=== PATIENT | female | born 1930 | race Caucasian/White ===

== ENCOUNTER → 2016-07-23 | Outpatient (CLI) | payer OTHER ==
[~2016-07-23] MED LIST: ASPEC325 PO; ATEN-175 PO; AZIT250T PO; CALC200S; CFT250 PO; CLTP PO; DIOVAN HCT PO; EZET10TA41 PO; FSM70 PO; GLC500 PO; LEVO100T84 PO; METAMUCIL TABS PO; NIFE60TA57 PO; NTRC PO; PRLSR20 PO; SERT50TA PO
[2016-07-23 17:38] LABS: BASO % 0.4 %; BASO ABS # 0.04 K/uL (0-0.2); COMPLETE YES; EOS % 5.6 %; HEMATOCRIT 35.9 % (37-47); IG% 0.2 %; LYMPH % 16.6 %; LYMPH ABS # 1.56 K/uL (1.2-3.4); MEAN CORPUSCULAR HEMOGLOBIN 31.7 pg (25-34); MEAN CORPUSCULAR HGB CONC 33.4 g/dl (32-36); MEAN PLATELET VOLUME 10.1 fL (7.4-10.4); MONO % 9.8 %; NEUT % 67.4 %; PLATELET COUNT 309 K/uL (130-400); RED BLOOD COUNT 3.78 M/uL (4.2-5.4); WHITE BLOOD COUNT 9.41 K/uL (4.8-10.8)
[2016-07-23 17:46] LABS: ALT/SGPT 14 U/L (12-78); BLOOD UREA NITROGEN 13 mg/dl (7-18); BUN/CREATININE RATIO 16.3 (10-20); CARBON DIOXIDE 32 mmol/L (21-32); CHLORIDE 98 mmol/L (98-107); CREATININE 0.79 mg/dl (0.60-1.20); GLUCOSE 99 mg/dl (70-99); POTASSIUM 4.2 mmol/L (3.5-5.1); SODIUM 137 mmol/L (136-145)
[2016-07-23 17:57] LABS: ALKALINE PHOSPHATASE 53 U/L (45-117); AST/SGOT 11 U/L (15-37)
== END | disposition home or self-care (01) ==
LOC: C.LABBFT 14:54
PROVIDERS: ATTEND Internal Medicine
DX: E03.9 Hypothyroidism, unspecified (principal); E11.9 Type 2 diabetes mellitus without complications

== ENCOUNTER → 2016-08-19 | Outpatient (CLI) | payer OTHER ==
[~2016-08-19] MED LIST changes: +OPTIRAY 320 IV PRN
--- NOTE | 2016-08-19 14:59 | DIAGNOSTIC IMAGING REPORT ---
CT NECK ANGIO WITH CONTRAST CLINICAL HISTORY: Carotid artery stenosis COMPARISON STUDY: Chronic Doppler ultrasound dated 02/16/2015 TECHNIQUE: CT angiography was performed from the aortic arch to the skull base. MIP imaging was performed. The patient was scanned in a dynamic helical fashion during intravenous administration of 119 cc of Optiray 320. CT DOSE: 477.71 mGy.cm Technique: CT angiogram of the carotid and vertebral arteries was obtained using intravenous contrast and 3-D reconstruction. NASCET criteria was utilized. MIP imaging was performed. There is underlying interstitial pulmonary fibrotic changes with subpleural reticulation. Only minimal left thyroid tissue is visualized. Findings: There is no evidence of right carotid artery aneurysm. There is calcific atheromatous plaque at the right carotid bifurcation. There is no evidence of hemodynamic significant carotid stenosis. There is no evidence of dissection. There is no evidence of left carotid artery aneurysm. There is calcific atheromatous plaque at the left carotid bifurcation. The dense plaque, limits the accuracy of the study for stenosis determination. The degree of stenosis is felt to be less than 50%. There is no evidence of hemodynamically significant vertebral stenosis. There is no evidence of vertebral dissection. IMPRESSION: 1. Moderate calcific plaque at the level of both carotid bifurcations. The dense plaque limits the accuracy of the study for stenosis determination. 2. No evidence of hemodynamic significant right internal carotid artery stenosis 3. Left internal carotid artery origin narrowing estimated to be less than 50% 4. No evidence of vertebral artery stenosis Electronically signed by: Raul Aldana M.D. 08/19/2016 2:57 PM Dictated Date/Time: 08/19/2016 2:48 PM
== END | disposition home or self-care (01) ==
LOC: C.CTS 13:54
PROVIDERS: ATTEND Internal Medicine
DX: I65.29 Occlusion and stenosis of unspecified carotid artery (principal)

== ENCOUNTER → 2016-08-21 | Outpatient (CLI) | payer OTHER ==
[~2016-08-21] MED LIST changes: -OPTIRAY 320 IV PRN
[2016-08-21 12:33] LABS: BASO % 0.5 %; BASO ABS # 0.05 K/uL (0-0.2); COMPLETE YES; EOS % 3.2 %; HEMATOCRIT 36.7 % (37-47); IG% 0.2 %; LYMPH % 17.5 %; LYMPH ABS # 1.64 K/uL (1.2-3.4); MEAN CELL VOLUME 97.9 fL (80-100); MEAN CORPUSCULAR HGB CONC 32.7 g/dl (32-36); MEAN PLATELET VOLUME 10.1 fL (7.4-10.4); MONO % 8.9 %; NEUT % 69.7 %; PLATELET COUNT 331 K/uL (130-400); RED BLOOD COUNT 3.75 M/uL (4.2-5.4); WHITE BLOOD COUNT 9.39 K/uL (4.8-10.8)
[2016-08-21 12:49] LABS: ALT/SGPT 16 U/L (12-78); BLOOD UREA NITROGEN 11 mg/dl (7-18); BUN/CREATININE RATIO 14.4 (10-20); CARBON DIOXIDE 27 mmol/L (21-32); CHLORIDE 103 mmol/L (98-107); CHOLESTEROL 118 mg/dl (0-200); CREATININE 0.79 mg/dl (0.60-1.20); GLUCOSE 116 mg/dl (70-99); SODIUM 139 mmol/L (136-145)
[2016-08-21 12:52] LABS: ESTIMATED AVERAGE GLUCOSE 134 mg/dl; HA1C FLAG Normal (Normal)
[2016-08-21 13:00] LABS: ALB/GLOB RATIO 0.9 (0.9-2); ALKALINE PHOSPHATASE 63 U/L (45-117); AST/SGOT 10 U/L (15-37); HDL CHOLESTEROL 40 mg/dl; LDL CHOLESTEROL CALCULATED 58 mg/dl; TRIGLYCERIDES 98 mg/dl (0-150); VERY LOW DENSITY LIPOPROT CALC 20 mg/dl
[2016-08-21 13:04] LABS: CALCIUM 9.5 mg/dl (8.5-10.1)
== END | disposition home or self-care (01) ==
LOC: C.LABBFT 08:49
PROVIDERS: ATTEND Internal Medicine
DX: E78.00 Pure hypercholesterolemia, unspecified (principal); E11.9 Type 2 diabetes mellitus without complications; E03.9 Hypothyroidism, unspecified; M81.0 Age-related osteoporosis without current pathological fracture

== ENCOUNTER → 2016-08-22 | Outpatient (CLI) | payer OTHER ==
[2016-08-22 13:54] LABS: URINE APPEARANCE CLEAR (CLEAR); URINE BILIRUBIN NEG (NEG); URINE COLOR YELLOW; URINE EPITHELIAL CELL AUTO >30 /lpf (0-5); URINE NITRITE NEG (NEG); URINE SPECIFIC GRAVITY 1.015 (1.000-1.030); UROBILINOGEN NEG (NEG); ZZUR CULT IF INDIC CLEAN CATCH YES
[2016-08-22 13:56] LABS: MANUAL MICROSCOPIC REQUIRED? NO; REVIEW REQ? NO
[2016-08-22 16:57] LABS: RATIO 13.1 mcg/mg (0-30.0)
--- NOTE | 2016-09-10 10:15 | CODING QUERY MEDICAL NECESSITY ---
CQSUPPORTING DIAGNOSIS NEEDED A supporting diagnosis is required for the test/procedure performed on this patient in order for us to be reimbursed by the patient's insurance. Please provide a supporting diagnosis for the following test/procedure listed below next to the test name along with your signature. *If there is no additional diagnosis for this patient that would support the following test/procedure please document that below next to the test/procedure. Test(s)/Procedure(s) that require a supporting diagnosis: DOS 08/22/16 URINE CULTURE Provider Signature: Date: Thank you Kirti Joyce [employer] Once completed, please kindly fax back to [phone] For questions please call [phone]
== END | disposition home or self-care (01) ==
LOC: C.LABSPEC 12:44
PROVIDERS: ATTEND Internal Medicine
DX: E11.9 Type 2 diabetes mellitus without complications (principal)

== ENCOUNTER → 2016-08-22 | Outpatient (CLI) | payer OTHER ==
--- NOTE | 2016-08-22 11:06 | DIAGNOSTIC IMAGING REPORT ---
CHEST 2 VIEWS ROUTINE CLINICAL HISTORY: Cough. COMPARISON STUDY: Chest radiograph February 16, 2015. FINDINGS: Lung volumes are normal. There is no pneumothorax or pleural effusion. Cardiomediastinal silhouette is stable. No consolidation is identified. There has been slight progression of interstitial thickening since prior exam. IMPRESSION: Slight progression of interstitial thickening since exam of February 16, 2015. The findings favor interstitial lung disease. No consolidation. Electronically signed by: Raoul Smith M.D. 08/22/2016 11:05 AM Dictated Date/Time: 08/22/2016 11:03 AM
--- NOTE | 2016-09-12 12:18 | CODING QUERY MEDICAL NECESSITY ---
CQSUPPORTING DIAGNOSIS NEEDED A supporting diagnosis is required for the test/procedure performed on this patient in order for us to be reimbursed by the patient's insurance. Please provide a supporting diagnosis for the following test/procedure listed below next to the test name along with your signature. *If there is no additional diagnosis for this patient that would support the following test/procedure please document that below next to the test/procedure. Test(s)/Procedure(s) that require a supporting diagnosis: DOS 08/22/16 URINE CULTURE Provider Signature: Date: Thank you Kirti Joyce [employer] Once completed, please kindly fax back to [phone] For questions please call [phone]
== END | disposition home or self-care (01) ==
LOC: C.RAD 10:23
PROVIDERS: ATTEND Internal Medicine
DX: R05 Cough (principal); E11.9 Type 2 diabetes mellitus without complications

== ENCOUNTER → 2016-09-04 | Outpatient (CLI) | payer OTHER ==
[2016-09-04 17:33] LABS: BASO % 0.4 %; BASO ABS # 0.04 K/uL (0-0.2); COMPLETE YES; EOS % 3.1 %; HEMATOCRIT 36.9 % (37-47); IG% 0.3 %; LYMPH % 16.5 %; LYMPH ABS # 1.76 K/uL (1.2-3.4); MEAN CELL VOLUME 98.4 fL (80-100); MEAN CORPUSCULAR HGB CONC 32.5 g/dl (32-36); MEAN PLATELET VOLUME 10.4 fL (7.4-10.4); MONO % 11.3 %; NEUT % 68.4 %; PLATELET COUNT 337 K/uL (130-400); RED BLOOD COUNT 3.75 M/uL (4.2-5.4); WHITE BLOOD COUNT 10.67 K/uL (4.8-10.8)
[2016-09-04 18:00] LABS: ALT/SGPT 14 U/L (12-78); BLOOD UREA NITROGEN 14 mg/dl (7-18); BUN/CREATININE RATIO 15.7 (10-20); CALCIUM 9.5 mg/dl (8.5-10.1); CARBON DIOXIDE 25 mmol/L (21-32); CHLORIDE 101 mmol/L (98-107); CREATININE 0.87 mg/dl (0.60-1.20); GLUCOSE 112 mg/dl (70-99); POTASSIUM 4.1 mmol/L (3.5-5.1); SODIUM 137 mmol/L (136-145)
[2016-09-04 18:11] LABS: ALB/GLOB RATIO 0.9 (0.9-2); ALKALINE PHOSPHATASE 60 U/L (45-117); AST/SGOT 7 U/L (15-37); THYROID STIMULATING HORMONE 0.673 uIu/ml (0.300-4.500)
--- NOTE | 2016-09-10 10:20 | CODING QUERY MEDICAL NECESSITY ---
CQSUPPORTING DIAGNOSIS NEEDED A supporting diagnosis is required for the test/procedure performed on this patient in order for us to be reimbursed by the patient's insurance. Please provide a supporting diagnosis for the following test/procedure listed below next to the test name along with your signature. *If there is no additional diagnosis for this patient that would support the following test/procedure please document that below next to the test/procedure. Test(s)/Procedure(s) that require a supporting diagnosis: DOS 09/04/16 VITAMIN B12 Provider Signature: Date: Thank you Kirti Joyce [employer] Once completed, please kindly fax back to [phone] For questions please call [phone]
== END | disposition home or self-care (01) ==
LOC: C.LABBFT 12:43
PROVIDERS: ATTEND Internal Medicine
DX: R41.0 Disorientation, unspecified (principal)

== ENCOUNTER → 2016-09-18 | Outpatient (CLI) | payer OTHER ==
[~2016-09-18] MED LIST changes: +GADAVIST IV PRN
--- NOTE | 2016-09-18 16:59 | DIAGNOSTIC IMAGING REPORT ---
Brain MRI WITH AND WITHOUT CONTRAST HISTORY: Confusion. TECHNIQUE: Multiplanar multisequence MRI of the brain was performed both before and after the intravenous administration of contrast. COMPARISON STUDY: None. FINDINGS: There is no mass, hematoma, midline shift, or acute infarct. The paranasal sinuses are clear. The mastoid air cells are clear. The ventricles and sulci demonstrate moderate age-related involutional changes. Extensive T2 hyperintensity seen within the white matter of the supratentorial brain. The major vascular flow voids at the skull base are well-maintained. IMPRESSION: No acute intracranial abnormality. Moderate atrophy. Extensive T2 hyperintensity within the white matter is nonspecific but favors advanced microvascular ischemic change. Electronically signed by: Torrey Villalba M.D. 09/18/2016 4:58 PM Dictated Date/Time: 09/18/2016 4:48 PM
== END | disposition home or self-care (01) ==
LOC: C.MRI 14:34
PROVIDERS: ATTEND Physician Assistant Medical
DX: R41.0 Disorientation, unspecified (principal)

== ENCOUNTER → 2017-01-02 | Outpatient (CLI) | payer OTHER ==
[~2017-01-02] MED LIST changes: -GADAVIST IV PRN
[2017-01-02 18:34] LABS: ESTIMATED AVERAGE GLUCOSE 134 mg/dl; HA1C FLAG Normal (Normal)
== END | disposition home or self-care (01) ==
LOC: C.LABBFT 13:02
PROVIDERS: ATTEND Internal Medicine
DX: E11.9 Type 2 diabetes mellitus without complications (principal)

== ENCOUNTER → 2017-06-11 | Outpatient (CLI) | payer OTHER ==
[2017-06-11 18:03] LABS: BLOOD UREA NITROGEN 21 mg/dl (7-18); CALCIUM 9.9 mg/dl (8.5-10.1); CARBON DIOXIDE 30 mmol/L (21-32); CREATININE 0.97 mg/dl (0.60-1.20); GLUCOSE 92 mg/dl (70-99); POTASSIUM 4.7 mmol/L (3.5-5.1); SODIUM 133 mmol/L (136-145)
[2017-06-12 06:27] LABS: HEMOGLOBIN A1C 6.6 % (4.5-5.6)
== END ==
LOC: C.LABBFT 11:52
PROVIDERS: ATTEND Nurse Practitioner
DX: E11.9 Type 2 diabetes mellitus without complications (principal); E55.9 Vitamin D deficiency, unspecified

== ENCOUNTER 2017-07-02 09:42 | Emergency (ER) | payer OTHER ==
[2017-07-02 09:45] VITALS: TEMP 36.3; Ht 156.2 cm
[2017-07-02] MEDS ORDERED: LEVO100T7 PO (10:45)
[2017-07-02] MEDS ORDERED: DONE10TA12 PO (10:45)
[2017-07-02] MEDS ORDERED: ASPI81TA28 PO (10:45)
[2017-07-02] MEDS ORDERED: CALC600T9 PO (10:45)
[2017-07-02] MEDS ORDERED: NIFE60TA57 PO (10:45)
[2017-07-02] MEDS ORDERED: CALC200S7 (10:45)
[2017-07-02] MEDS ORDERED: SERT50TA PO (10:45)
[2017-07-02] MEDS ORDERED: PRLSR20 PO (10:45)
[2017-07-02] MEDS ORDERED: EZET10TA41 PO (10:45)
[2017-07-02] MEDS ORDERED: SOLI10TA2 PO (10:45)
[2017-07-02] MEDS ORDERED: METF500T5 PO (10:45)
--- NOTE | 2017-07-02 11:53 | DIAGNOSTIC IMAGING REPORT ---
LUMBAR SPINE WITHOUT CT DOSE: 954.87 mGycm HISTORY: Trauma. Pain. RIGHT LOW BACK PAIN AFTER FALL TECHNIQUE: Multiaxial CT images of the lumbar spine were performed and reformatted in the sagittal and coronal plane without the use of contrast. A dose lowering technique was utilized adhering to the principles of ALARA. COMPARISON: None. FINDINGS: No fractures. No subluxation. Paraspinal soft tissues are unremarkable. Degenerative disc change throughout. Considerable degenerative change posterior elements. Moderate generalized osteopenia. IMPRESSION: Degenerative change. No acute process. The above report was generated using voice recognition software. It may contain grammatical, syntax or spelling errors. Electronically signed by: Memo Henry M.D. 07/02/2017 11:52 AM Dictated Date/Time: 07/02/2017 11:44 AM
--- NOTE | 2017-07-02 12:07 | DIAGNOSTIC IMAGING REPORT ---
CT RIGHT HIP NO CONTRAST CT DOSE: CLINICAL HISTORY: Right hip and pelvic pain status post trauma TECHNIQUE: Helical images were acquired in the transverse plane. Sagittal and coronal reformatted images were acquired. A dose lowering technique was utilized adhering to the principles of ALARA. COMPARISON STUDY: None. FINDINGS: Note is made of colonic diverticulosis. No hip fractures are visualized. There are mild osteoarthritic changes. IMPRESSION: No fractures identified. Electronically signed by: Raul Aldana M.D. 07/02/2017 12:06 PM Dictated Date/Time: 07/02/2017 12:03 PM
--- NOTE | 2017-07-02 12:24 | EMERGENCY ROOM VISIT NOTE ---
ED Visit Note First contact with patient: 10:47 CHIEF COMPLAINT: Low back pain 2 weeks after a fall HISTORY OF PRESENT ILLNESS: Patient is an 85-year-old white female who is brought to the emergency department accompanied by her and sons for evaluation of right-sided low back pain. The patient reportedly suffered 2 mechanical falls, one 2 weeks ago in her bathroom, and then one again a week ago. Both times she reports that she tripped over carpeting and fell. She is unable to recall how she landed, her son does suggest that one time she did land on her buttocks. There were no other injuries other than the back pain, and no associated chest pain, palpitations, lightheadedness or dizziness prior to the falls. The patient is otherwise ambulatory independently, has a walker that she does not use that often. She is able to ambulate without difficulty. She notes right low back pain without radiation. It is constant and worse with movement. She rates her discomfort a 7/10. She has tried heat on the area, but has not taken any medication for discomfort. She is on a baby aspirin daily. She had a left hip injection for bursitis at her PCPs office about a month ago. There is no radiation of the pain into the buttocks or her legs. No bowel or bladder incontinence. REVIEW OF SYSTEMS: Review of systems as per HPI. All other systems reviewed were negative. At least 6 systems reviewed. PMH: Electronic medical records are reviewed and summarized as above/below. See Problem List. SOCIAL HISTORY: Patient lives at home with her family. PHYSICAL EXAM: Vital Signs: Reviewed Nurse's notes. CONSTITUTIONAL: Patient is a pleasant, well-appearing 86-year-old white female who is awake and alert and in no acute distress. CARDIOVASCULAR: Regular rate and rhythm, systolic ejection murmur noted.. RESPIRATORY: Breath sounds equal and clear to auscultation without wheezes, rales, or rhonchi heard. Full and equal chest expansion without accessory muscle use or retractions. Ribs are nontender to palpation. ABDOMEN: Bowel sounds are present. Abdomen is soft, nontender and nondistended. INTEGUMENTARY: No lesions or rash, normal skin turgor. LYMPH: No lymphadenopathy. SPINE: Examination of the patient's back does not demonstrate any ecchymosis, abrasions or outward signs of trauma. No erythema, increased warmth or induration. Patient has no midline discomfort to palpation over the cervical, thoracic or lumbar spinous processes. She has reproducible pain in the right over the PSIS and SI joint. There is no discomfort low over the sacrum. Lumbar spine range of motion is diminished due to discomfort.. EXTREMITIES: Leg lengths are symmetrical. Negative logroll bilaterally. Normal strength including dorsi-flexion and plantar flexion of the great toes and ankles and flexion and extension of the knees and flexion of the hips. Negative bilateral straight leg raise testing. Lower extremity DTRs are equal and symmetrical bilaterally. Distal pulses are easily palpable. Sensation light touch is intact over the lower extremities bilaterally. EMERGENCY DEPARTMENT COURSE: The patient was seen and assessed as above. She has had a right low back pain for 2 weeks after [address] of the lumbar spine and right hip were obtained, and arthritic/degenerative changes were noted without evidence for acute fracture. Patient was reviewed with attending physician. Differential diagnoses entertained included vertebral fracture including compression fracture or transverse process fracture, pelvic fracture, insufficiency fracture, SI joint pain, among others. She was encouraged to apply moist heat to the area and take Tylenol for discomfort. She may benefit from physical therapy if her symptoms are not improving. She was encouraged to follow-up with her primary care provider for further care and evaluation. Medication reconciliation: I attest that I have personally reviewed the patient' s current medication list. Blood pressure screening : Patient was found to have normal blood pressure on screening and does not require follow-up. CT RIGHT HIP NO CONTRAST CT DOSE: CLINICAL HISTORY: Right hip and pelvic pain status post trauma TECHNIQUE: Helical images were acquired in the transverse plane. Sagittal and coronal reformatted images were acquired. A dose lowering technique was utilized adhering to the principles of ALARA. COMPARISON STUDY: None. FINDINGS: Note is made of colonic diverticulosis. No hip fractures are visualized. There are mild osteoarthritic changes. IMPRESSION: No fractures identified. LUMBAR SPINE WITHOUT CT DOSE: 954.87 mGycm HISTORY: Trauma. Pain. RIGHT LOW BACK PAIN AFTER FALL TECHNIQUE: Multiaxial CT images of the lumbar spine were performed and reformatted in the sagittal and coronal plane without the use of contrast. A dose lowering technique was utilized adhering to the principles of ALARA. COMPARISON: None. FINDINGS: No fractures. No subluxation. Paraspinal soft tissues are unremarkable. Degenerative disc change throughout. Considerable degenerative change posterior elements. Moderate generalized osteopenia. IMPRESSION: Degenerative change. No acute process. Problem List Medical Problems: (1) Dementia Status: Chronic (2) Hyperlipidemia Nec/Nos Status: Chronic (3) Hypertension Nos Status: Chronic (4) Hypothyroidism Nos Status: Chronic (5) Osteoporosis Nos Status: Chronic (6) Type 2 Diabetes Mellitus Without Complications Status: Chronic Current/Historical Medications Scheduled Aspirin (Aspirin Ec), 81 MG PO DAILY Calcitonin ([place]) (Miacalcin), 1 SPRAY NA UD Calcium Carbonate-Vitamin D (Calcium + D), 1 TAB PO BID Donepezil Hydrochloride (Aricept), 10 MG PO QPM Ezetimibe/Simvastatin (Vytorin 10MG/40MG), 1 TAB PO QPM Levothyroxine Sodium (Levothyroxine Sodium), 1 TAB PO DAILY Metformin Hcl Er (Glucophage Er), 1,000 MG PO DAILY Nifedipine Ext Rel (Procardia Xl Ext Rel), 60 MG PO DAILY Omeprazole (Prilosec), 20 MG PO Q2D Sertraline (Zoloft), 50 MG PO DAILY Solifenacin (Vesicare), 1 TAB PO DAILY Allergies Coded Allergies: No Known Allergies (Verified , 07/02/17) Vital Signs Date Time Temp Pulse Resp B/P (MAP) Pulse Ox O2 Delivery O2 Flow Rate FiO2 07/02/17 12:40 80 18 128/61 98 07/02/17 11:45 83 18 136/56 95 Room Air 07/02/17 09:45 36.3 83 18 119/51 94 Room Air Departure Information Impression Primary Impression: Right low back pain Referrals Adrián Lucero M.D. (PCP) Patient Instructions My [facility] Additional Instructions Acetaminophen(Tylenol) may be used for fever or pain. Use 1000mg every six hours as needed. Avoid using more than 3000mg in a 24 hour period. This medication can be taken if you need to drive, work, or perform activities which may be dangerous when taking narcotic pain medication. Rest and avoid heavy lifting until your symptoms resolve and then gradually return to full activity. A good rule of thumb is if it hurts your back to perform a certain activity, then it should be avoided until you are healthy again. A heating pad, warm compresses, or a hot shower may help with tight muscles and can be done several times a day as needed. Continue current medications. Return to the ER immediately for any numbness, tingling, severe pain, loss of control of your bowels or bladder, inability to walk, or as needed. Follow up with your primary care physician within 3-5 days for a recheck of your current condition.
[2017-07-02 12:40] VITALS: BP 128/61; PULSE 80; O2SAT 98
== END 2017-07-02 12:40 | disposition home or self-care (01) ==
LOC: C.EDB 09:43 → C.EDC 12:40
DX: M54.5 Low back pain (principal); W18.09XA Striking against other object with subsequent fall, initial encounter; Y92.019 Unspecified place in single-family (private) house as the place of occurrence of the external cause; F03.90 Unspecified dementia, unspecified severity, without behavioral disturbance, psychotic disturbance, mood disturbance, and anxiety; E78.5 Hyperlipidemia, unspecified; I10 Essential (primary) hypertension; E03.9 Hypothyroidism, unspecified; M81.0 Age-related osteoporosis without current pathological fracture; E11.9 Type 2 diabetes mellitus without complications; Z79.82 Long term (current) use of aspirin; Z79.899 Other long term (current) drug therapy

== ENCOUNTER → 2017-09-11 | Outpatient (CLI) | payer OTHER ==
[~2017-09-11] MED LIST changes: -ASPEC325 PO; +ASPI81TA28 PO; -ATEN-175 PO; -AZIT250T PO; -CALC200S; +CALC200S7; +CALC600T9 PO; -CFT250 PO; -CLTP PO; -DIOVAN HCT PO; +DONE10TA12 PO; -FSM70 PO; -GLC500 PO; +LEVO100T7 PO; -LEVO100T84 PO; -METAMUCIL TABS PO; +METF500T5 PO; -NTRC PO; +SOLI10TA2 PO
[2017-09-11 12:59] LABS: BASO % 0.4 %; BASO ABS # 0.05 K/uL (0-0.2); EOS % 1.9 %; EOS ABS # 0.22 K/uL (0-0.5); HEMATOCRIT 39.9 % (37-47); HEMOGLOBIN 13.8 g/dL (12.0-16.0); IG# 0.04 K/uL (0.00-0.02); LYMPH % 13.3 %; MEAN CELL VOLUME 93.7 fL (80-100); MEAN CORPUSCULAR HEMOGLOBIN 32.4 pg (25-34); MEAN CORPUSCULAR HGB CONC 34.6 g/dl (32-36); MEAN PLATELET VOLUME 10.2 fL (7.4-10.4); MONO % 8.1 %; MONO ABS # 0.92 K/uL (0.11-0.59); NEUT % 75.9 %; NEUT ABS # 8.58 K/uL (1.4-6.5); PLATELET COUNT 334 K/uL (130-400); RED CELL DISTRIBUTION WIDTH CV 14.4 % (11.5-14.5); WHITE BLOOD COUNT 11.31 K/uL (4.8-10.8)
[2017-09-11 13:21] LABS: HEMOGLOBIN A1C 6.4 % (4.5-5.6)
[2017-09-11 13:22] LABS: ALKALINE PHOSPHATASE 60 U/L (45-117); ALT/SGPT 15 U/L (12-78); AST/SGOT 9 U/L (15-37); BLOOD UREA NITROGEN 17 mg/dl (7-18); CALCIUM 9.8 mg/dl (8.5-10.1); CARBON DIOXIDE 29 mmol/L (21-32); CREATININE 1.04 mg/dl (0.60-1.20); GLUCOSE 93 mg/dl (70-99); SODIUM 133 mmol/L (136-145); TOTAL PROTEIN 7.9 gm/dl (6.4-8.2)
== END | disposition home or self-care (01) ==
LOC: C.LABBFT 10:17
PROVIDERS: ATTEND Physician Assistant Medical
DX: R53.83 Other fatigue (principal); E11.9 Type 2 diabetes mellitus without complications; E55.9 Vitamin D deficiency, unspecified

== ENCOUNTER → 2017-11-24 | Outpatient (CLI) | payer OTHER ==
[2017-11-24 13:15] LABS: BLOOD UREA NITROGEN 16 mg/dl (7-18); CALCIUM 9.5 mg/dl (8.5-10.1); CARBON DIOXIDE 28 mmol/L (21-32); CREATININE 1.01 mg/dl (0.60-1.20); GLUCOSE 103 mg/dl (70-99); POTASSIUM 3.8 mmol/L (3.5-5.1); SODIUM 135 mmol/L (136-145)
[2017-11-26 16:22] LABS: METHYLMALONIC ACID 213 NMOL/L (87-318)
== END | disposition home or self-care (01) ==
LOC: C.LABBFT 09:36
PROVIDERS: ATTEND Physician Assistant Medical
DX: E53.8 Deficiency of other specified B group vitamins (principal); N17.9 Acute kidney failure, unspecified